=== PATIENT | male | born 1985 | race African-American/Black ===

== ENCOUNTER 2016-10-08 08:40 | Emergency (ER) | payer OTHER ==
[~2016-10-08] VITALS: Ht 172.7 cm; Wt 125.5 kg
[~2016-10-08 08:40] MED LIST: ACET1TAB40 PO; AMOX1TAB67 PO; AMOX250S38 PO; CLON-429 PO; DOCU-144 PO; IBUP800T25 PO; METF500T4 PO; PRAM28.33 PR; PSL6PK PO; ZOLP10TA PO
[2016-10-08 08:52] VITALS: Ht 172.7 cm; Wt 125.5 kg
[2016-10-08] MEDS ORDERED: KETOROLAC 30 MG INJ IM STA (10:12)
--- NOTE | 2016-10-08 10:50 | ERD ---
ER Documentation Chief Complaint Date/Time DATE: 10/08/16 TIME: 10:49 Chief Complaint Complains of left ankle pain since yesterday HPI This is a 31-year-old male presenting to the emergency department for left ankle pain 2 days. Patient had a fall yesterday and states he "twisted" his left ankle. Patient has had previous injuries to this ankle and has intermittent bouts of pain. Patient has pain with weightbearing to left foot. No obvious deformity. Patient states he has swelling to left ankle. Denies numbness or tingling or loss of sensation. No laceration. ROS All systems reviewed and are negative except as per history of present illness. Medications Home Meds Active Scripts Ibuprofen* (Motrin*) 800 Mg Tab, 800 MG PO Q6, #15 TAB Prov:TOY VILLARREAL NP 10/08/16 Metformin* (Glucophage*) 500 Mg Tab, 500 MG PO BID, #60 TAB Prov:MICHAEL GARCIA 04/12/16 Zolpidem Tartrate* (Ambien*) 10 Mg Tablet, 10 MG PO QHS Y for INSOMNIA, #7 TAB Prov:MICHAEL GARCIA 04/12/16 Clonazepam* (Klonopin*) 0.5 Mg Tab, 0.5 MG PO QHS, #7 TAB Prov:MICHAEL GARCIA 04/12/16 Pramoxine Hcl* (Anusol*) 28.3 Gm Oint...g., 1 APPLIC IN BID, #1 TUB Prov:YUNIEL PENA DO 08/18/15 Docusate Sodium* (Colace*) 100 Mg Capsule, 100 MG PO BID, #30 CAP Prov:BECKYYUNIEL DO 08/18/15 Psyllium (Konsyl) 1 Pkt Susp, 1 PKT PO DAILY, #10 PACKET Prov:YUNIEL PENA DO 08/18/15 Ibuprofen* (Motrin*) 800 Mg Tab, 800 MG PO Q6, #15 TAB Prov:TOY VILLARREAL NP 08/08/15 Amoxicillin-Clavulanate K* (Augmentin*) 500 Mg Tab, 500 MG PO BID, #20 TAB Prov:TOY VILLARREAL NP 08/08/15 Acetaminophen-Codeine* (Acetaminophen-Cod #3*) 300-30 Mg Tab, 1 TAB PO Q4H Y for PAIN, #30 TAB Prov:MICHAEL GARCIA 07/31/15 Amox Tr-Potassium Clavulanate* (Augmentin* Susp) 250-62.5MG/5 Ml - 100 Ml Susp.recon, 10 ML PO TID for 7 Days, BOTTLE Prov:MICHAEL GARCIA 07/31/15 Reported Medications Metformin* (Glucophage*) 500 Mg Tab, 500 MG PO DAILY, #60 TAB 06/23/15 Allergies Allergies: Coded Allergies: No Known Allergy (Unverified , 08/18/15) PMhx/Soc History of Surgery: Yes (testicular, adenoids) Anesthesia Reaction: No Hx Neurological Disorder: No Hx Respiratory Disorders: No Hx Cardiac Disorders: No Hx Psychiatric Problems: Yes (DEPRESSION) Hx Miscellaneous Medical Probl: Yes (DM type 2) Hx Alcohol Use: Yes ("NOT VERY MUCH") Hx Substance Use: No Hx Tobacco Use: Yes (10 CIGS/DAY) Smoking Status: Current every day smoker Physical Exam Vitals Vital Signs Date Time Temp Pulse Resp B/P Pulse Ox O2 Delivery O2 Flow Rate FiO2 10/08/16 08:52 98.3 94 20 151/77 96 Physical Exam Const: Alert, [id number] Head: Atraumatic Eyes: Normal Conjunctiva ENT: Normal External Ears, Nose and Mouth. Neck: Full range of motion..~ No meningismus. Resp: Clear to auscultation bilaterally Cardio: Regular rate and rhythm, no murmurs Abd: Soft, non tender, non distended. Normal bowel sounds Skin: No petechiae or rashes Back: No midline or flank tenderness Ext: Mild swelling to malleolus. Pedal pulses 2+ and intact bilaterally 2+. Neur: Awake and alert Psych: Normal Mood and Affect Results 24 hrs Current Medications Medications (Trade) Dose Ordered Sig/Juanito Route PRN Reason Start Time Stop Time Status Last Admin Dose Admin Ketorolac Tromethamine (Toradol) 30 mg ONCE STAT IM 10/08/16 10:12 10/08/16 10:14 DC 10/08/16 10:21 Procedures/MDM ED COURSE: The patient was stable throughout ED course. I kept the patient and/or family informed of laboratory and diagnostic imaging results throughout the ED course. Imaging X-ray left ankle Patient: SHAYAN SAMUEL : 1985 Age: 31 Sex: M MR #: [id number] [facility] #: [id number] DOS: 10/08/16 1012 Ordering MD: TOY VILLARREAL NP Location: [facility] Room/Bed: PROCEDURE: Left ankle series. CLINICAL INDICATION: Left ankle pain TECHNIQUE: Three views of the left ankle were performed. COMPARISON: None. FINDINGS: There is normal mineralization and alignment of the bones of the left ankle. No acute fracture or dislocation is seen. There is an anterior osteophyte arising from the distal tibia which may be causing impingement and contacting the anterior talus. No joint effusion is identified. There is moderate diffuse soft tissue swelling.. IMPRESSION: 1. No evidence of acute fracture or dislocation. 2. Moderate diffuse soft tissue swelling. 3. Anterior osteophyte arising from the distal tibia suggesting anterior tibiotalar impingement. Consider further evaluation with non emergent MRI to evaluate for marrow edema as clinically indicated. MDM: This is a 31 year old male presenting to ER with ankle pain after injury yesterday. Patient states he fell and "twisted" his ankle while walking. Patient given Toradol while in the ED. left ankle x-ray reviewed by radiologist as no evidence of acute fracture or dislocation. Moderate diffuse soft tissue swelling and anterior osteophyte arising from the distal tibia suggesting anterior tibiotalar impingement. Patient's pain has improved. Vital signs are stable. Remains afebrile. Patient remains alert, calm and cooperative. Low suspicion for acute dislocation or fracture. Patient's diagnosis is ankle pain secondary to injury. Patient is appropriate for outpatient management will be given prescription for ibuprofen. Instructed patient to follow-up with primary care provider or orthopedic physician in the next 2-3 days for reassessment. Resources provided. Return to ED for any high fever, chest pain, difficulty breathing, shortness breath, wheezing, vomiting, diarrhea, abdominal pain or any new or worsening symptoms. Patient verbalizes understanding. All questions answered at discharge. Departure Diagnosis: Primary Impression: Ankle pain Laterality: left Chronicity: chronic Qualified Code: M25.572 - Chronic pain of left ankle Condition: Stable TOY VILLARREAL NP October 08, 2016 10:50
--- NOTE | 2016-10-08 11:05 | RADRPT ---
PROCEDURE: Left ankle series. CLINICAL INDICATION: Left ankle pain TECHNIQUE: Three views of the left ankle were performed. COMPARISON: None. FINDINGS: There is normal mineralization and alignment of the bones of the left ankle. No acute fracture or d islocation is seen. There is an anterior osteophyte arising from the distal tibia which may be caus ing impingement and contacting the anterior talus. No joint effusion is identified. There is moderat e diffuse soft tissue swelling.. IMPRESSION: 1. No evidence of acute fracture or dislocation. 2. Moderate diffuse soft tissue swelling. 3. Anterior osteophyte arising from the distal tibia suggesting anterior tibiotalar impingement. C onsider further evaluation with non emergent MRI to evaluate for marrow edema as clinically indicate d. RPTAT: KK .Joel Lubin MD, Date Time Electronically viewed and signed by .Joel Lubin MD, on 10/08/2016 11:05 .B/
[2016-10-08] MEDS ORDERED: IBUP800T25 PO (11:12)
== END 2016-10-08 12:16 | disposition home or self-care (01) ==
LOC: FTE 08:40
DX: M25.572 Pain in left ankle and joints of left foot (principal); E11.9 Type 2 diabetes mellitus without complications; F17.210 Nicotine dependence, cigarettes, uncomplicated; Z79.84 Long term (current) use of oral hypoglycemic drugs
CPT/HCPCS: 73610; 96372; J1885; Z7502

== ENCOUNTER 2017-01-23 08:30 | Emergency (ER) | payer OTHER ==
[~2017-01-23] VITALS: Ht 172.7 cm; Wt 126.0 kg
[2017-01-23 08:33] VITALS: Ht 172.7 cm; Wt 126.0 kg
[2017-01-23] MEDS ORDERED: METF500T4 PO (08:58)
[2017-01-23] MEDS ORDERED: HC.5O30 TOP (08:58)
[2017-01-23] MEDS ORDERED: ZOLP10TA PO (08:58)
--- NOTE | 2017-01-23 09:06 | ERD ---
ER Documentation Chief Complaint Date/Time DATE: 01/23/17 TIME: 09:00 Chief Complaint needs medication refill HPI 31-year-old male with a history of type 2 diabetes, and sleep insomnia, presents to the emergency department for a medication refill of his metformin and Ambien. Patient states he is in the process of trying to find a new primary care provider but is unable to see one in a timely matter. Patient also reports an itchy rash on the dorsum of his right wrist since yesterday. He notes that he is staying in a retirement and noticed small bugs biting his skin near the wrist and since that time has experienced mild itchiness and redness. Patient denies any major swelling, numbness, tingling, fever, chills, dizziness, abdominal pain, change in vision, polydipsia, polyuria. He denies chest pain or shortness of breath. He states he checks his blood sugar regularly and it is normally well controlled. ROS All systems reviewed and are negative except as per history of present illness. Medications Home Meds Active Scripts Zolpidem Tartrate* (Ambien*) 10 Mg Tablet, 10 MG PO QHS Y for INSOMNIA, #30 TAB Prov:TERESA KOCH PA-C 01/23/17 Hydrocortisone* Topical (Hydrocortisone* Topical) 0.5%- 28.35 Gm Oint, 1 APPLIC TOP BID for 7 Days, TUB Prov:TERESA KOCH PA-C 01/23/17 Metformin* (Glucophage*) 500 Mg Tab, 500 MG PO BID, #60 TAB Prov:TERESA KOCH PA-C 01/23/17 Ibuprofen* (Motrin*) 800 Mg Tab, 800 MG PO Q6, #15 TAB Prov:TOY VILLARREAL NP 10/08/16 Metformin* (Glucophage*) 500 Mg Tab, 500 MG PO BID, #60 TAB Prov:RADHA,MICHAEL C 04/12/16 Zolpidem Tartrate* (Ambien*) 10 Mg Tablet, 10 MG PO QHS Y for INSOMNIA, #7 TAB Prov:RADHA,MICHAEL C 04/12/16 Clonazepam* (Klonopin*) 0.5 Mg Tab, 0.5 MG PO QHS, #7 TAB Prov:RADHA,MICHAEL C 04/12/16 Pramoxine Hcl* (Anusol*) 28.3 Gm Oint...g., 1 APPLIC NE BID, #1 TUB Prov:YUNIEL PENA DO 08/18/15 Docusate Sodium* (Colace*) 100 Mg Capsule, 100 MG PO BID, #30 CAP Prov:YUNIEL PENA DO 08/18/15 Psyllium (Konsyl) 1 Pkt Susp, 1 PKT PO DAILY, #10 PACKET Prov:YUNIEL PENA DO 08/18/15 Ibuprofen* (Motrin*) 800 Mg Tab, 800 MG PO Q6, #15 TAB Prov:TOY VILLARREAL [employer] MACHINE OPERATOR 08/08/15 Amoxicillin-Clavulanate K* (Augmentin*) 500 Mg Tab, 500 MG PO BID, #20 TAB Prov:TOY VILLARREAL SK[employer] MACHINE OPERATOR 08/08/15 Acetaminophen-Codeine* (Acetaminophen-Cod #3*) 300-30 Mg Tab, 1 TAB PO Q4H Y for PAIN, #30 TAB Prov:MICHAEL GARCIA 07/31/15 Amox Tr-Potassium Clavulanate* (Augmentin* Susp) 250-62.5MG/5 Ml - 100 Ml Susp.recon, 10 ML PO TID for 7 Days, BOTTLE Prov:MICHAEL GARCIA 07/31/15 Reported Medications Metformin* (Glucophage*) 500 Mg Tab, 500 MG PO DAILY, #60 TAB 06/23/15 Allergies Allergies: Coded Allergies: No Known Allergy (Unverified , 01/23/17) PMhx/Soc History of Surgery: Yes (testicular, adenoids) Anesthesia Reaction: No Hx Neurological Disorder: No Hx Respiratory Disorders: No Hx Cardiac Disorders: No Hx Psychiatric Problems: Yes (DEPRESSION) Hx Miscellaneous Medical Probl: Yes (DM type 2) Hx Alcohol Use: Yes ("NOT VERY MUCH") Hx Substance Use: No Hx Tobacco Use: Yes (10 CIGS/DAY) Smoking Status: Current every day smoker Physical Exam Vitals Vital Signs Date Time Temp Pulse Resp B/P Pulse Ox O2 Delivery O2 Flow Rate FiO2 01/23/17 08:33 97.1 91 18 162/102 95 Physical Exam Const: Well-developed, well-nourished, no acute distress Head: Atraumatic Eyes: Normal Conjunctiva ENT: Normal External Ears, Nose and Mouth. Neck: Full range of motion..~ No meningismus. Resp: Clear to auscultation bilaterally Cardio: Regular rate and rhythm, no murmurs Abd: Soft, non tender, non distended. Normal bowel sounds Skin: Mildly erythematous silver plaque like lesions in clusters along the dorsum of the right wrist. No swelling. No increased warmth. Patient has full range of motion of wrist and hand. Distal sensation intact for the right hand. Tissue warm and well perfused. Back: No midline or flank tenderness Ext: No cyanosis, or edema Neur: Awake and alert Psych: Normal Mood and Affect Procedures/MDM This is a 31-year-old male with a history of type 2 diabetes here for a medication refill as well as for a new onset rash to the dorsum of his right wrist. Patient denies any recent illness, fever, chills, abdominal pain, blurred vision, dizziness, chest pain, shortness of breath, or other complaints. Physical exam with evidence of an eczematous type rash to the right wrist region. There is no major swelling, or signs of infection. Patient well-appearing, nontoxic, and pleasant throughout exam. Vital signs reviewed. Patient afebrile, non-tachycardic, non-hypoxic upon arrival. Patient 's blood pressure was elevated (>120/80) but appears stable without evidence of hypertension emergency or urgency. The patient was counseled about the risks of hypertension and urged to pursue outpatient monitoring and therapy within a week with their primary care physician. Patient provided with a refill for Ambien, 10 mg, daily as well as Metformin, 500 mg twice daily. I will also be prescribing him topical hydrocortisone cream to control his rash symptoms. He was provided with a list of resources so that he may follow-up with his primary care physician to better control his chronic disease. Based on patient's history of present illness and physical examination the decision was made to discharge. The patient was re-evaluated after ED treatment and stabilizing measures, and symptoms have improved. There is no evidence of life threatening injuries or illnesses at this time. On re-examination, patient resting in no distress, stable vital signs, reports feeling better and safe for discharge with outpatient follow up with PMD in 1-2 days. Patient given return precautions. Departure Diagnosis: Primary Impression: Rash Additional Impression: Medication refill Condition: Good Patient Instructions: Self-Care for Skin Rashes Additional Instructions: Call your primary care doctor TOMORROW for an appointment during the next 1-2 days.See the doctor sooner or return here if your condition worsens before your appointment time. TERESA KOCH PA-C Jan 23, 2017 09:05
== END 2017-01-23 09:26 | disposition home or self-care (01) ==
LOC: FTE 08:30
DX: R21 Rash and other nonspecific skin eruption (principal); E11.9 Type 2 diabetes mellitus without complications; F17.210 Nicotine dependence, cigarettes, uncomplicated; Z76.0 Encounter for issue of repeat prescription; Z79.84 Long term (current) use of oral hypoglycemic drugs
CPT/HCPCS: 99283

== ENCOUNTER 2017-02-25 21:16 | Emergency (ER) | payer OTHER ==
[~2017-02-25] VITALS: Ht 177.8 cm; Wt 121.5 kg
[~2017-02-25 21:16] MED LIST changes: +HC.5O30 TOP
[2017-02-25 21:20] VITALS: Ht 177.8 cm; Wt 121.5 kg
[2017-02-26] MEDS ORDERED: SOD CHLORIDE 0.9% 1,000 ML IV ONE
[2017-02-26 00:30] LABS: BASOPHILS % 0.3 % (0.0-2.0); EOSINOPHILS % 0.3 % (0.0-7.0); HEMATOCRIT 49.2 % (42.0-52.0); HEMOGLOBIN 15.6 g/dl (14.0-18.0); LYMPHOCYTES # 2.5 10^3/ul (0.8-2.9); LYMPHOCYTES % 24.5 % (15.0-51.0); MEAN CORPUSCULAR HEMOGLOBIN 27.5 pg (29.0-33.0); MEAN CORPUSCULAR HGB CONC 31.7 g/dl (32.0-37.0); MEAN CORPUSCULAR VOLUME 86.6 fl (82.0-101.0); MEAN PLATELET VOLUME 11.3 fl (7.4-10.4); MONOCYTE # 0.7 10^3/ul (0.3-0.9); MONOCYTES % 7.1 % (0.0-11.0); NEUTROPHIL # 6.7 10^3/ul (1.6-7.5); NEUTROPHILS % 67.3 % (39.0-77.0); PLATELET COUNT 243 10^3/UL (140-415); RED BLOOD COUNT 5.68 10^6/ul (4.70-6.10); RED CELL DISTRIBUTION WIDTH 12.3 % (11.5-14.5)
[2017-02-26 00:49] LABS: ALANINE AMINOTRANSFERASE 28 IU/L (13-69); ALBUMIN 4.4 g/dl (3.3-4.9); ALBUMIN/GLOBULIN RATIO 1.37; ALKALINE PHOSPHATASE 62 IU/L (42-121); ANION GAP 13 (8-16); ASPARTATE AMINO TRANSFERASE 18 IU/L (15-46); BILIRUBIN,INDIRECT 0.6 mg/dl (0-1.1); BILIRUBIN,TOTAL 0.6 mg/dl (0.2-1.3); BLOOD UREA NITROGEN 19 mg/dl (7-20); CARBON DIOXIDE 28 mmol/L (21-31); CHLORIDE 100 mmol/L (97-110); CREATININE 1.03 mg/dl (0.61-1.24); GLUCOSE 155 mg/dl (70-220); POTASSIUM 4.2 mmol/L (3.5-5.1); SODIUM 137 mmol/L (135-144); TOTAL PROTEIN 7.6 g/dl (6.1-8.1)
[2017-02-26 01:11] LABS: CANNABINOIDS Positive (NEGATIVE)
[2017-02-26 01:33] LABS: BARBITURATES Negative (NEGATIVE); BENZODIAZEPINES Negative (NEGATIVE); COCAINE Negative (NEGATIVE); OPIATES Negative (NEGATIVE)
--- NOTE | 2017-02-26 01:38 | RADRPT ---
PROCEDURE: Renal US. CLINICAL INDICATION: Renal failure. TECHNIQUE: Multiple sonographic images of the kidneys were obtained. COMPARISON: No prior studies are submitted for comparison. FINDINGS: The right kidney measures 10.1 cm. There is preservation of corticomedullary differentiation. No sha dowing renal calculus is identified. There is no evidence of hydronephrosis. The left kidney measures 10 cm. There is preservation of corticomedullary differentiation. No shadow ing renal calculus is identified. There is no evidence of hydronephrosis. The bladder is nondistended and not well visualized. The visualized aorta is within normal limits. The visualized portions of the IVC are within normal l imits. IMPRESSION: No evidence of shadowing renal calculi or hydronephrosis. RPTAT: HIKT .Greg Diamond MD, Date Time Electronically viewed and signed by .Greg Diamond MD, on 02/26/2017 01:37 .T/
[2017-02-26 01:55] LABS: ETHANOL < 10.0 mg/dl
--- NOTE | 2017-02-26 02:15 | RADRPT ---
PROCEDURE: XR Chest. CLINICAL INDICATION: Palpitations. Asthma. TECHNIQUE: Portable single view of the chest COMPARISON: 07/30/2015 FINDINGS: The heart is again noted to be top normal in size. Lung volumes are slightly reduced but no definite acute infiltrate, pleural effusion, or overt congestive heart failure is seen. IMPRESSION: Top normal heart size. No definite acute pulmonary disease. RPTAT: HLBE Lydia Saldana Physician Date Time Electronically viewed and signed by Lydia Saldana, Physician on 02/26/2017 02:15 LE/
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
[2017-02-26 02:26] VITALS: BP 132/77; PULSE 82; RESP 20; TEMP 98
== END 2017-02-26 02:29 | disposition home or self-care (01) ==
LOC: FTE 21:16
DX: T50.901A Poisoning by unspecified drugs, medicaments and biological substances, accidental (unintentional), initial encounter (principal); E11.9 Type 2 diabetes mellitus without complications; F17.210 Nicotine dependence, cigarettes, uncomplicated; R07.9 Chest pain, unspecified; Z79.84 Long term (current) use of oral hypoglycemic drugs
CPT/HCPCS: 36415; 71010; 76775; 80053; 80306; 80307; 83930; 85025; 93005; J7030; Z7502

== ENCOUNTER 2017-04-14 19:55 | Emergency (ER) | payer OTHER ==
[~2017-04-14] VITALS: Ht 172.7 cm; Wt 123.2 kg
[2017-04-14 20:07] VITALS: Ht 172.7 cm; Wt 123.2 kg
[2017-04-14] MEDS ORDERED: KETOROLAC 60 MG INJ IM STA (21:26)
[2017-04-14] MEDS ORDERED: CYCL-319 PO (21:28)
[2017-04-14] MEDS ORDERED: NAPR-260 PO (21:28)
--- NOTE | 2017-04-14 21:32 | ERD ---
ER Documentation Chief Complaint Chief Complaint low back pain while lifting weights x 2 days HPI This is a 31-year-old male presenting to the emergency department complaining of right lumbar back pain status post lifting heavy weights 2 days prior to being seen. Patient states that the pain is moderate in severity and states that it is described as achy. Patient denies taking any medications for this. He states that the pain is worse when he gets up from a chair ROS All systems reviewed and are negative except as per history of present illness. Medications Home Meds Active Scripts Cyclobenzaprine Hcl* (Cyclobenzaprine Hcl*) 10 Mg Tablet, 10 MG PO Q8 Y for MUSCLE SPASMS, #30 TAB Prov:GOGO DALYC 04/14/17 Naproxen* (Naprosyn*) 500 Mg Tablet, 500 MG PO BID Y for PAIN AND/OR INFLAMMATION, #30 TAB Prov:GOGO DALYC 04/14/17 Zolpidem Tartrate* (Ambien*) 10 Mg Tablet, 10 MG PO QHS Y for INSOMNIA, #30 TAB Prov:TERESA KOCHC 01/23/17 Hydrocortisone* Topical (Hydrocortisone* Topical) 0.5%- 28.35 Gm Oint, 1 APPLIC TOP BID for 7 Days, TUB Prov:TERESA KOCHC 01/23/17 Metformin* (Glucophage*) 500 Mg Tab, 500 MG PO BID, #60 TAB Prov:TERESA KOCHC 01/23/17 Ibuprofen* (Motrin*) 800 Mg Tab, 800 MG PO Q6, #15 TAB Prov:TOY VILLARREAL NP 10/08/16 Metformin* (Glucophage*) 500 Mg Tab, 500 MG PO BID, #60 TAB Prov:RADHAMICHAEL C 04/12/16 Zolpidem Tartrate* (Ambien*) 10 Mg Tablet, 10 MG PO QHS Y for INSOMNIA, #7 TAB Prov:RADHAMICHAEL C 04/12/16 Clonazepam* (Klonopin*) 0.5 Mg Tab, 0.5 MG PO QHS, #7 TAB Prov:RADHAMICHAEL C 04/12/16 Pramoxine Hcl* (Anusol*) 28.3 Gm Oint...g., 1 APPLIC SD BID, #1 TUB Prov:YUNIEL PENA DO 08/18/15 Docusate Sodium* (Colace*) 100 Mg Capsule, 100 MG PO BID, #30 CAP Prov:YUNIEL PENA DO 08/18/15 Psyllium (Konsyl) 1 Pkt Susp, 1 PKT PO DAILY, #10 PACKET Prov:YUNIEL PENA DO 08/18/15 Ibuprofen* (Motrin*) 800 Mg Tab, 800 MG PO Q6, #15 TAB Prov:TOY VILLARREAL HAZARD MITIGATION OFFICER 08/08/15 Amoxicillin-Clavulanate K* (Augmentin*) 500 Mg Tab, 500 MG PO BID, #20 TAB Prov:TOY VILLARREAL HAZARD MITIGATION OFFICER 08/08/15 Acetaminophen-Codeine* (Acetaminophen-Cod #3*) 300-30 Mg Tab, 1 TAB PO Q4H Y for PAIN, #30 TAB Prov:MICHAEL GARCIA 07/31/15 Amox Tr-Potassium Clavulanate* (Augmentin* Susp) 250-62.5MG/5 Ml - 100 Ml Susp.recon, 10 ML PO TID for 7 Days, BOTTLE Prov:RAMÍREZ GARCIANA C 07/31/15 Reported Medications Metformin* (Glucophage*) 500 Mg Tab, 500 MG PO DAILY, #60 TAB 06/23/15 Allergies Allergies: Coded Allergies: No Known Allergy (Unverified , 04/14/17) PMhx/Soc History of Surgery: Yes (testicular, adenoids) Anesthesia Reaction: No Hx Neurological Disorder: No Hx Respiratory Disorders: No Hx Cardiac Disorders: No Hx Psychiatric Problems: Yes (DEPRESSION) Hx Miscellaneous Medical Probl: Yes (DM type 2) Hx Alcohol Use: Yes (social) Hx Substance Use: No Hx Tobacco Use: Yes (10 CIGS/DAY) Physical Exam Vitals Vital Signs Date Time Temp Pulse Resp B/P Pulse Ox O2 Delivery O2 Flow Rate FiO2 04/14/17 20:07 98.7 108 20 168/100 96 Physical Exam GENERAL: WD/WN, in no apparent distress, non-toxic appearing HENT: NC/AT EYES: Conjunctiva normal NECK: Supple PULM: Normal labored breathing CV: Good capillary refill GI: Non-distended, no guarding BACK: no deformities noted, normal spinal curvature, patient with a right lumbar region and paraspinal muscles, nontender on spine midline EXT: No clubbing, cyanosis, or edema NEURO: Moves on all fours, sensation intact, normal gait SKIN: intact PSYCH: Normal mood Results 24 hrs Current Medications Medications (Trade) Dose Ordered Sig/Juanito Route PRN Reason Start Time Stop Time Status Last Admin Dose Admin Ketorolac Tromethamine (Toradol) 60 mg ONCE STAT IM 04/14/17 21:26 04/14/17 21:27 DC Procedures/MDM This is a 31-year-old male presenting to the emergency department with a right lumbar strain status post lifting heavy weights 2 days prior to being seen. There was no evidence of cauda equina or vertebral fracture. Patient is neurovascular intact and stable to be discharged home with instructions to follow-up with her primary care physician. In the ED, patient was given Toradol. He was given a prescription for naproxen and Flexeril for home. Discussed return to the ER for any worsening symptoms. He understands and agrees with plan. Departure Diagnosis: Primary Impression: Lumbar strain Condition: Stable Patient Instructions: Relieving Back Pain, Back Pain (Acute Or Chronic) Additional Instructions: FOLLOW UP WITH YOUR PRIMARY CARE PHYSICIAN TOMORROW.Return to this facility if you are not improving as expected. You have been given a medicine which may cause drowsiness.DO NOT DRIVE OR OPERATE DANGEROUS MACHINERY while taking this medicine! Take all medicines as directed. Return to this facility if you are not improving as expected. GOGO DALY PA-C Apr 14, 2017 21:32
== END 2017-04-14 22:13 | disposition home or self-care (01) ==
LOC: FTE 19:55
DX: S39.012A Strain of muscle, fascia and tendon of lower back, initial encounter (principal); E11.9 Type 2 diabetes mellitus without complications; F17.210 Nicotine dependence, cigarettes, uncomplicated; X50.0XXA Overexertion from strenuous movement or load, initial encounter; Y92.9 Unspecified place or not applicable; Z79.84 Long term (current) use of oral hypoglycemic drugs
CPT/HCPCS: 96372; J1885; Z7502

== ENCOUNTER 2017-05-17 20:20 | Emergency (ER) | payer OTHER ==
[~2017-05-17] VITALS: Ht 182.9 cm; Wt 122.5 kg
[~2017-05-17 20:20] MED LIST changes: +CYCL-319 PO; +NAPR-260 PO
[2017-05-17 20:24] VITALS: Ht 182.9 cm; Wt 122.5 kg
[2017-05-17] MEDS ORDERED: METF500T4 PO (21:23)
--- NOTE | 2017-05-18 04:12 | ERD ---
ER Documentation Chief Complaint Chief Complaint mewdication refill- metformin HPI This is a 32 y/o old male that presents to the ER for medication refill. Patient is requesting metformin. Patient stated that he takes 500 mg p.o. twice daily every day. He has not had a chance to go to the doctor, since he just got a new primary care doctor and has not been able to get an appointment. Patient denies any chest pain, patient, shortness of breath, shakiness, vision changes, nausea, vomiting. He denies any fevers or chills. He states that he has been taking his metformin lately and that his diabetes is finally getting under control. ROS 12 point review of systems was done, all negative except per HPI. Medications Home Meds Active Scripts Metformin* (Glucophage*) 500 Mg Tab, 500 MG PO BID for 60 Days, #120 TAB Prov:MICHAEL GARCIA 05/17/17 Cyclobenzaprine Hcl* (Cyclobenzaprine Hcl*) 10 Mg Tablet, 10 MG PO Q8 Y for MUSCLE SPASMS, #30 TAB Prov:GOGO DALY PA-C 04/14/17 Naproxen* (Naprosyn*) 500 Mg Tablet, 500 MG PO BID Y for PAIN AND/OR INFLAMMATION, #30 TAB Prov:GOGO DALY PA-C 04/14/17 Zolpidem Tartrate* (Ambien*) 10 Mg Tablet, 10 MG PO QHS Y for INSOMNIA, #30 TAB Prov:TERESA KOCH PA-C 01/23/17 Hydrocortisone* Topical (Hydrocortisone* Topical) 0.5%- 28.35 Gm Oint, 1 APPLIC TOP BID for 7 Days, TUB Prov:TERESA KOCH PA-C 01/23/17 Metformin* (Glucophage*) 500 Mg Tab, 500 MG PO BID, #60 TAB Prov:TERESA KOCH PA-C 01/23/17 Ibuprofen* (Motrin*) 800 Mg Tab, 800 MG PO Q6, #15 TAB Prov:TOY VILLARREAL NP 10/08/16 Metformin* (Glucophage*) 500 Mg Tab, 500 MG PO BID, #60 TAB Prov:MICHAEL GARCIA 04/12/16 Zolpidem Tartrate* (Ambien*) 10 Mg Tablet, 10 MG PO QHS Y for INSOMNIA, #7 TAB Prov:MICHAEL GARICA Chemo 04/12/16 Clonazepam* (Klonopin*) 0.5 Mg Tab, 0.5 MG PO QHS, #7 TAB Prov:MICHAEL GARCIA Chemo 04/12/16 Pramoxine Hcl* (Anusol*) 28.3 Gm Oint...g., 1 APPLIC ND BID, #1 TUB Prov:YUNIEL PENA DO 08/18/15 Docusate Sodium* (Colace*) 100 Mg Capsule, 100 MG PO BID, #30 CAP Prov:YUNIEL PENA 08/18/15 Psyllium (Konsyl) 1 Pkt Susp, 1 PKT PO DAILY, #10 PACKET Prov:YUNIEL PENA 08/18/15 Ibuprofen* (Motrin*) 800 Mg Tab, 800 MG PO Q6, #15 TAB Prov:TOY VILLARREAL MILK INSPECTOR 08/08/15 Amoxicillin-Clavulanate K* (Augmentin*) 500 Mg Tab, 500 MG PO BID, #20 TAB Prov:TOY VILLARREAL MILK INSPECTOR 08/08/15 Acetaminophen-Codeine* (Acetaminophen-Cod #3*) 300-30 Mg Tab, 1 TAB PO Q4H Y for PAIN, #30 TAB Prov:RADHAMICHAEL Mclain 07/31/15 Amox Tr-Potassium Clavulanate* (Augmentin* Susp) 250-62.5MG/5 Ml - 100 Ml Susp.recon, 10 ML PO TID for 7 Days, BOTTLE Prov:MICHAEL GARCIA Chemo 07/31/15 Reported Medications Metformin* (Glucophage*) 500 Mg Tab, 500 MG PO DAILY, #60 TAB 06/23/15 Allergies Allergies: Coded Allergies: No Known Allergy (Unverified , 04/14/17) PMhx/Soc History of Surgery: Yes (testicular, adenoids) Anesthesia Reaction: No Hx Neurological Disorder: No Hx Respiratory Disorders: No Hx Cardiac Disorders: No Hx Psychiatric Problems: Yes (DEPRESSION) Hx Miscellaneous Medical Probl: Yes (DM type 2) Hx Alcohol Use: Yes (social) Hx Substance Use: No Hx Tobacco Use: Yes (10 CIGS/DAY) Smoking Status: Current every day smoker Physical Exam Vitals Vital Signs Date Time Temp Pulse Resp B/P Pulse Ox O2 Delivery O2 Flow Rate FiO2 05/17/17 20:24 97.3 115 20 137/92 98 Physical Exam GENERAL: The patient is well developed and appropriate for usual state of health , in no apparent distress. HEENT: Atraumatic. CHEST: Clear to auscultation bilaterally. There are no rales, wheezes or rhonchi. HEART: Regular rate and rhythm. No murmurs, clicks, rubs or gallops. ABDOMEN: Soft, nontender and nondistended. NEURO: Alert and oriented. Procedures/MDM This is a 32-year-old male that presents to the ER for medication refill, he is asymptomatic otherwise. Patient's blood pressure was slightly elevated to 137/ 92, however he does have hypertension. He does not have any hypertensive emergency or urgency at this time. Patient did take his Klonopin this morning. Patient was slightly tachycardic however is completely asymptomatic with no chest pain, palpitations, shortness of breath, leg pain, leg redness or leg swelling. Patient is not hypoxic or in any respiratory distress. He will be given his refill for medication was advised to follow-up with his primary care doctor regarding his diabetes and high blood pressure as soon as possible. My medical decision making shared with the patient he understands and agrees with plan. Departure Diagnosis: Primary Impression: Encounter for medication refill Condition: Stable Patient Instructions: Taking Medicine Safely Referrals: [facility] (PCP) Additional Instructions: Call your primary care doctor TOMORROW for an appointment during the next 1-2 days.See the doctor sooner or return here if your condition worsens before your appointment time. MICHAEL GARCIA May 18, 2017 04:12
== END 2017-05-17 21:43 | disposition home or self-care (01) ==
LOC: FTE 20:20
DX: Z76.0 Encounter for issue of repeat prescription (principal); E11.9 Type 2 diabetes mellitus without complications; F17.210 Nicotine dependence, cigarettes, uncomplicated
CPT/HCPCS: 99281

== ENCOUNTER 2017-07-24 07:36 | Emergency (ER) | END 2017-07-24 08:32 | disposition home or self-care (01) ==

== ENCOUNTER 2017-08-12 20:53 | Emergency (ER) | END 2017-08-12 21:30 | disposition home or self-care (01) ==

== ENCOUNTER 2017-11-28 00:31 | Emergency (ER) | END 2017-11-28 04:04 | disposition home or self-care (01) ==

== ENCOUNTER 2017-12-02 15:22 | Emergency (ER) | END 2017-12-02 17:35 | disposition home or self-care (01) ==

== ENCOUNTER 2018-01-19 02:30 | Emergency (ER) | END 2018-01-19 03:38 | disposition home or self-care (01) ==

== ENCOUNTER 2018-03-13 05:33 | Emergency (ER) | END 2018-03-13 06:30 | disposition home or self-care (01) ==

== ENCOUNTER 2018-08-15 08:56 | Emergency (ER) | payer OTHER ==
[~2018-08-15] VITALS: Wt 126.0 kg
[~2018-08-15 08:56] MED LIST changes: +AMOX1TAB10 PO; +CEPH-443 PO; -CYCL-319 PO; +CYCL10TA7 PO; +D-ME473S2 PO; +FLUT9.9S NASAL; +IBUP-1542 PO; -IBUP800T25 PO; +IBUP800T48 PO; +METF-849 PO; -METF500T4 PO; +METF850T13 PO; -NAPR-260 PO; +NAPR-985 PO; +PSEU30TA38 PO; +SULF1TAB31 PO
[2018-08-15 09:00] VITALS: BP 136/74; PULSE 105; RESP 18
--- NOTE | 2018-08-15 10:15 | ERD ---
ER Documentation Chief Complaint Chief Complaint R EYE PAIN AND SWELLING X 3 DAYS HPI 33-year-old male presents for evaluation of right eye lower lid swelling, for the last 3 days. He denies significant pain. No fever, no visual changes. ROS All systems reviewed and are negative except as per history of present illness. Medications Home Meds Active Scripts Erythromycin Base (Erythromycin) 1 Gm Oint...g., 1 APPLIC RIGHT EYE BID for 7 Days Prov:MARNI JAUREGUI MD 08/15/18 Fluticasone Propionate (Flonase Allergy Relief) 9.9 Ml [place].susp, 1 SPRAY NASAL BID, #1 BOTTLE TO EACH NOSTRIL Prov:MATTEO FLORES PA-C 03/13/18 Pseudoephedrine Hcl* (Pseudoephedrine Hcl*) 30 Mg Tablet, 30 MG PO Q6 PRN for CONGESTION, #30 TAB Prov:MATTEO FLORES PA-C 03/13/18 Dextromethorphan Hb-Promethazine Hcl* (Promethazine DM* Syrup) 473 Ml Syrup, 5 ML PO Q6 PRN for COUGH, #100 ML Prov:MATTEO FLORES PA-C 03/13/18 Ibuprofen* (Motrin*) 600 Mg Tab, 600 MG PO Q6H PRN for PAIN AND OR ELEVATED TEMP, #30 TAB Prov:ROCÍO HEWITT NP 01/19/18 Amoxicillin/Potassium Clav (Amox-Clav 875-125 mg Tablet) 875-125 mg Tab, 1 TAB PO BID for 7 Days, #14 TAB Prov:ROCÍO HEWITT NP 01/19/18 Cephalexin* (Keflex*) 500 Mg Capsule, 500 MG PO QID for 7 Days, CAP Prov:RUSSELL MOSELEY PA-C 12/02/17 Sulfamethoxazole/Trimethoprim* (Bactrim Ds* Tablet) 1 Each Tablet, 1 TAB PO BID for 7 Days, #14 TAB Prov:RUSSELL MOSELEY PA-C 12/02/17 Zolpidem Tartrate* (Ambien*) 10 Mg Tablet, 10 MG PO QHS PRN for INSOMNIA, #5 TAB Prov:SERVANDO WHITLOCK NP 11/28/17 Metformin Hcl* (Metformin Hcl*) 850 Mg Tablet, 850 MG PO BID, #30 TAB Prov:SERVANDO WHITLOCKStef BRICK MASON 08/12/17 Metformin* (Glucophage*) 500 Mg Tab, 500 MG PO BID for 60 Days, #120 TAB Prov:MICHAEL GARCIA 05/17/17 Cyclobenzaprine Hcl* (Cyclobenzaprine Hcl*) 10 Mg Tablet, 10 MG PO Q8 PRN for MUSCLE SPASMS, #30 TAB Prov:GOGO DALY-C 04/14/17 Naproxen* (Naprosyn*) 500 Mg Tablet, 500 MG PO BID PRN for PAIN AND/OR INFLAMMATION, #30 TAB Prov:GOGO DALY-C 04/14/17 Zolpidem Tartrate* (Ambien*) 10 Mg Tablet, 10 MG PO QHS PRN for INSOMNIA, #30 TAB Prov:TERESA KOCH-C 01/23/17 Hydrocortisone* Topical (Hydrocortisone* Topical) 0.5%- 28.35 Gm Oint, 1 APPLIC TOP BID for 7 Days, TUB Prov:TERESA KOCHC 01/23/17 Metformin* (Glucophage*) 500 Mg Tab, 500 MG PO BID, #60 TAB Prov:TERESA KOCH- 01/23/17 Ibuprofen* (Motrin*) 800 Mg Tab, 800 MG PO Q6, #15 TAB Prov:TOY VILLARREAL BRICK MASON 10/08/16 Metformin* (Glucophage*) 500 Mg Tab, 500 MG PO BID, #60 TAB Prov:MICHAEL GARCIA 04/12/16 Zolpidem Tartrate* (Ambien*) 10 Mg Tablet, 10 MG PO QHS PRN for INSOMNIA, #7 TAB Prov:MICHAEL GARCIA 04/12/16 Clonazepam* (Klonopin*) 0.5 Mg Tab, 0.5 MG PO QHS, #7 TAB Prov:MICHAEL GARCIA 04/12/16 Pramoxine Hcl* (Anusol*) 28.3 Gm Oint...g., 1 APPLIC [place] BID, #1 TUB Prov:YUNIEL PENA DO 08/18/15 Docusate Sodium* (Colace*) 100 Mg Capsule, 100 MG PO BID, #30 CAP Prov:YUNIEL PENA DO 08/18/15 Psyllium (Konsyl) 1 Pkt Susp, 1 PKT PO DAILY, #10 PACKET Prov:YUNIEL PENA DO 08/18/15 Ibuprofen* (Motrin*) 800 Mg Tab, 800 MG PO Q6, #15 TAB Prov:TOY VILLARREALStef BRICK MASON 08/08/15 Amoxicillin-Clavulanate K* (Augmentin*) 500 Mg Tab, 500 MG PO BID, #20 TAB Prov:TOY VILLARREALStef BRICK MASON 08/08/15 Acetaminophen-Codeine* (Acetaminophen-Cod #3*) 300-30 Mg Tab, 1 TAB PO Q4H PRN for PAIN, #30 TAB Prov:MICHAEL GARCIA Chemo 07/31/15 Amox Tr-Potassium Clavulanate* (Augmentin* Susp) 250-62.5MG/5 Ml - 100 Ml Susp.recon, 10 ML PO TID for 7 Days, BOTTLE Prov:MICHAEL GARCIA Chemo 07/31/15 Reported Medications Metformin* (Glucophage*) 500 Mg Tab, 500 MG PO DAILY, #60 TAB 06/23/15 Allergies Allergies: Coded Allergies: No Known Allergy (Unverified , 04/14/17) PMhx/Soc History of Surgery: Yes (hernia, adenoids ) Anesthesia Reaction: No Hx Neurological Disorder: No Hx Respiratory Disorders: No Hx Cardiac Disorders: No Hx Psychiatric Problems: No Hx Miscellaneous Medical Probl: Yes (hx diabetes) Hx Alcohol Use: No Hx Substance Use: No Hx Tobacco Use: Yes (10 CIGS/DAY) Physical Exam Vitals Vital Signs Date Temp Pulse Resp B/P (MAP) Pulse Ox O2 O2 Flow FiO2 Time Delivery Rate 08/15/18 98.1 105 18 136/74 99 09:00 (94) Physical Exam Const: No acute distress Head: Atraumatic Eyes: Pupils equal round reactive to light, normal conjunctiva, extraocular motion intact, there is a small amount of lower lid swelling, with no fluctuance, no drainage ENT: Normal External Ears, Nose and Mouth. Neck: Full range of motion. No meningismus. Resp: Normal respiratory effort Skin: No petechiae or rashes Ext: No cyanosis, or edema Neur: Awake and alert Psych: Normal Mood and Affect Procedures/MDM 33-year-old well-appearing nontoxic male presents for eye complaint, most consistent with likely blepharitis. No evidence of significant complication, recommended erythromycin ointment, and warm compresses. Patient otherwise stable for discharge home, at discharge she was in no acute distress. Departure Diagnosis: Primary Impression: Blepharitis Blepharitis type: unspecified type Laterality: unspecified laterality Qualified Codes: H01.009 - Unspecified blepharitis unspecified eye, unspecified eyelid Condition: Stable MARNI JAUREGUI MD Aug 15, 2018 10:15
[2018-08-15] MEDS ORDERED: ERYT1OIN6 RIGHT EYE (10:17)
== END 2018-08-15 10:30 | disposition home or self-care (01) ==
LOC: E/R 08:56
DX: H01.002 Unspecified blepharitis right lower eyelid (principal); E11.9 Type 2 diabetes mellitus without complications; F17.210 Nicotine dependence, cigarettes, uncomplicated; Z79.84 Long term (current) use of oral hypoglycemic drugs
CPT/HCPCS: 99283

== ENCOUNTER 2018-09-04 08:26 | Emergency (ER) | payer OTHER ==
[~2018-09-04] VITALS: Ht 157.5 cm; Wt 117.1 kg
[~2018-09-04 08:26] MED LIST changes: +ERYT1OIN6 RIGHT EYE
[2018-09-04 08:29] VITALS: BP 154/81; PULSE 105; RESP 20; Ht 157.5 cm; Wt 117.1 kg
[2018-09-04] MEDS ORDERED: KETOROLAC 60 MG INJ IM STA (08:41)
[2018-09-04] MEDS ORDERED: IBUP-1542 PO (10:06)
--- NOTE | 2018-09-04 10:21 | ERD ---
ER Documentation Chief Complaint Chief Complaint Complains of bilateral ankle pain x 3 days HPI 33-year-old male patient with a past history of diabetes, resents to the ED complaining of bilateral ankle pain that started about 3 days ago. Patient states that it is worsened in the left ankle and has now left foot pain. States that he currently has a follow-up with his primary care physician and is trying to get orthopedic care however is still waiting for authorization. States that this is been going on for a while, last time patient was here was about 2 years ago. States that the pain has worsened. Denies any loss of sensation, loss of range of motion, fever, chills, increased redness or swelling, chest pain, shortness of breath. ROS All systems reviewed and are negative except as per history of present illness. Medications Home Meds Active Scripts Ibuprofen* (Motrin*) 600 Mg Tab, 600 MG PO Q6, #30 TAB Prov:EUGENIA KAHN PA-C 09/04/18 Erythromycin Base (Erythromycin) 1 Gm Oint...g., 1 APPLIC RIGHT EYE BID for 7 Days Prov:MARNI JAUREGUI MD 08/15/18 Fluticasone Propionate (Flonase Allergy Relief) 9.9 Ml [place].susp, 1 SPRAY NASAL BID, #1 BOTTLE TO EACH NOSTRIL Prov:MATTEO FLORES PA-C 03/13/18 Pseudoephedrine Hcl* (Pseudoephedrine Hcl*) 30 Mg Tablet, 30 MG PO Q6 PRN for CONGESTION, #30 TAB Prov:MATTEO FLORES PA-C 03/13/18 Dextromethorphan Hb-Promethazine Hcl* (Promethazine DM* Syrup) 473 Ml Syrup, 5 ML PO Q6 PRN for COUGH, #100 ML Prov:MATTEO FLORES PA-C 03/13/18 Ibuprofen* (Motrin*) 600 Mg Tab, 600 MG PO Q6H PRN for PAIN AND OR ELEVATED TEMP, #30 TAB Prov:ROCÍO HEWITT NP 01/19/18 Amoxicillin/Potassium Clav (Amox-Clav 875-125 mg Tablet) 875-125 mg Tab, 1 TAB PO BID for 7 Days, #14 TAB Prov:ROCÍO HEWITT NP 8/12/18 Cephalexin* (Keflex*) 500 Mg Capsule, 500 MG PO QID for 7 Days, CAP Prov:RUSSELL MOSELEYC 12/02/17 Sulfamethoxazole/Trimethoprim* (Bactrim Ds* Tablet) 1 Each Tablet, 1 TAB PO BID for 7 Days, #14 TAB Prov:RUSSELL MOSELEYC 12/02/17 Zolpidem Tartrate* (Ambien*) 10 Mg Tablet, 10 MG PO QHS PRN for INSOMNIA, #5 TAB Prov:SERVANDO WHITLOCK BODY FITTER 11/28/17 Metformin Hcl* (Metformin Hcl*) 850 Mg Tablet, 850 MG PO BID, #30 TAB Prov:SERVANDO WHITLOCK BODY FITTER 08/12/17 Metformin* (Glucophage*) 500 Mg Tab, 500 MG PO BID for 60 Days, #120 TAB Prov:MICHAEL GARCIA 05/17/17 Cyclobenzaprine Hcl* (Cyclobenzaprine Hcl*) 10 Mg Tablet, 10 MG PO Q8 PRN for MUSCLE SPASMS, #30 TAB Prov:GOGO DALYC 04/14/17 Naproxen* (Naprosyn*) 500 Mg Tablet, 500 MG PO BID PRN for PAIN AND/OR INFLAMMATION, #30 TAB Prov:GOGO DALYC 04/14/17 Zolpidem Tartrate* (Ambien*) 10 Mg Tablet, 10 MG PO QHS PRN for INSOMNIA, #30 TAB Prov:TERESA KOCH PA-C 01/23/17 Hydrocortisone* Topical (Hydrocortisone* Topical) 0.5%- 28.35 Gm Oint, 1 APPLIC TOP BID for 7 Days, TUB Prov:TERESA KOCH PA-C 01/23/17 Metformin* (Glucophage*) 500 Mg Tab, 500 MG PO BID, #60 TAB Prov:TERESA KOCHC 01/23/17 Ibuprofen* (Motrin*) 800 Mg Tab, 800 MG PO Q6, #15 TAB Prov:TOY VILLARREAL NP 10/08/16 Metformin* (Glucophage*) 500 Mg Tab, 500 MG PO BID, #60 TAB Prov:MICHAEL GARCIA 04/12/16 Zolpidem Tartrate* (Ambien*) 10 Mg Tablet, 10 MG PO QHS PRN for INSOMNIA, #7 TAB Prov:MICHAEL GARCIA Chemo 04/12/16 Clonazepam* (Klonopin*) 0.5 Mg Tab, 0.5 MG PO QHS, #7 TAB Prov:MICHAEL GARCIA Chemo 04/12/16 Pramoxine Hcl* (Anusol*) 28.3 Gm Oint...g., 1 APPLIC PA BID, #1 TUB Prov:YUNIEL PENA DO 08/18/15 Docusate Sodium* (Colace*) 100 Mg Capsule, 100 MG PO BID, #30 CAP Prov:BECKY,[facility] 08/18/15 Psyllium (Konsyl) 1 Pkt Susp, 1 PKT PO DAILY, #10 PACKET Prov:YUNIEL PENA 08/18/15 Ibuprofen* (Motrin*) 800 Mg Tab, 800 MG PO Q6, #15 TAB Prov:TOY VILLARREAL BODY FITTER 08/08/15 Amoxicillin-Clavulanate K* (Augmentin*) 500 Mg Tab, 500 MG PO BID, #20 TAB Prov:TOY VILLARREAL BODY FITTER 08/08/15 Acetaminophen-Codeine* (Acetaminophen-Cod #3*) 300-30 Mg Tab, 1 TAB PO Q4H PRN for PAIN, #30 TAB Prov:MICHAEL GARCIA Chemo 07/31/15 Amox Tr-Potassium Clavulanate* (Augmentin* Susp) 250-62.5MG/5 Ml - 100 Ml Susp.recon, 10 ML PO TID for 7 Days, BOTTLE Prov:MICHAEL GARCIA Chemo 07/31/15 Reported Medications Metformin* (Glucophage*) 500 Mg Tab, 500 MG PO DAILY, #60 TAB 06/23/15 Allergies Allergies: Coded Allergies: No Known Allergy (Unverified , 04/14/17) PMhx/Soc History of Surgery: Yes (hernia, adenoids ) Anesthesia Reaction: No Hx Neurological Disorder: No Hx Respiratory Disorders: No Hx Cardiac Disorders: No Hx Psychiatric Problems: No Hx Miscellaneous Medical Probl: Yes (hx diabetes) Hx Alcohol Use: No Hx Substance Use: No Hx Tobacco Use: Yes (10 CIGS/DAY) Smoking Status: Never smoker FmHx Family History: No diabetes, No coronary disease Physical Exam Vitals Vital Signs Date Temp Pulse Resp B/P (MAP) Pulse Ox O2 O2 Flow FiO2 Time Delivery Rate 09/04/18 98.3 105 20 154/81 96 08:29 (105) Physical Exam Const: Xev-syi-pedpofrff, well-nourished. In no acute distress. Head: Atraumatic, normocephalic Eyes: Normal Conjunctiva without injection ENT: Normal external ear, nose and mouth. Neck: Full range of motion. No meningismus. Resp: Clear to auscultation bilaterally. No wheezing, rhonchi, rales, or crackles. No accessory muscle use. No retractions. Cardio: Regular rate and rhythm, no murmurs Skin: No petechiae or rashes Back: No midline tenderness. No CVA tenderness. Ext: No cyanosis, or edema. Cap refill less than 2 seconds. Distal pulses intact bilaterally. Tenderness palpation of the inferior portion of the medial malleolus. Slight edema noted over the aspect of patient's left ankle. No erythema. Full range of motion with plantarflexion, dorsiflexion. Neur: Awake and alert. Normal gait and coordination. Muscle strength 5/5. Sensation intact bilaterally. Psych: Normal Mood and Affect Results 24 hrs Current Medications Medications Dose Sig/Juanito Start Time Status Last (Trade) Ordered Route PRN Stop Time Admin Dose Reason Admin Ketorolac 60 mg ONCE STAT 09/04/18 DC 09/04/18 Tromethamine IM 08:41 08:52 (Toradol) 09/04/18 08:44 Procedures/MDM 33-year-old male patient with a past medical history of diabetes that started 3 days ago. Patient is afebrile and nontoxic-appearing. Patient given Toradol 10 mg IM with improvement of his pain. IMPRESSION: Mild generalized soft tissue swelling although less pronounced than previously. No new acute fracture or dislocation is seen. There is again mild anterior distal tibial spurring at the tibiotalar joint. Note, nondisplaced fractures may initially be inapparent and short-term followup could be considered if concern or symptoms persist. IMPRESSION: No acute osseous abnormality is identified. Patient is placed in an wrap. Patient denied wanting crutches. Patient was able to ambulate without any difficulty. Splint Assessment: Neurovascularly intact pre and post splint placement with good fit. Patient's extremity symptoms have stabilized while they have been evaluated in the department and are appropriate for outpatient follow up. No evidence of fractures, dislocations, compartment syndrome, neurologic injury, vascular injury, open joint, open fracture, tendon laceration, septic arthritis, osteomyelitis, DVT, foreign body, or other emergent conditions. Diagnosis: Ankle pain Discharge medications: Ibuprofen Follow up with primary care physician in 1-2 days follow-up with prior authorization to see an orthopedic physician for further evaluation and treatment and probable MRI recommended from previous x-ray. Instructed patient to return to the ED sooner for any worsening symptoms. Patient's questions were answered. Patient is hemodynamically stable. Patient understood and agreed with discharge plan. Patient discharged stable. Disclaimer: Inadvertent spelling and grammatical errors are likely due to EHR/dictation software use and do not reflect on the overall quality of patient care. Also, please note that the electronic time recorded on this note does not necessarily reflect the actual time of the patient encounter. Departure Diagnosis: Primary Impression: Ankle pain Chronicity: acute Laterality: left Qualified Codes: M25.572 - Pain in left ankle and joints of left foot Condition: Stable Patient Instructions: What Are Ankle Sprains?, Treating Ankle Sprains Referrals: [facility] Usted se page hecho un examen mdico de control que le indica que no est en ramón condicin que requiera tratamiento urgente en el Departamento de Emergencia. Un estudio ms profundo y el tratamiento de hays condicin pueden esperar sin ningn riesgo hasta que usted sea atendida/o en el consultorio de hays mdico o ramón clnica. Es responsabilidad suya arreglar ramón sabiha para el seguimiento del ruthann. MANEJO DE CONDICIONES NO URGENTES EN EL FUTURO 1) Si usted tiene un mdico de atencin primaria: Usted debera llamar a hays mdico de atencin primaria antes de venir al departamento de emergencia. Despus de las horas de consultorio, hays doctor o hays asociado/a est disponible por telfono. El mdico o enfermero de irene en el servicio telefnico puede asesorarle por paris medio para atender el problema, o ruthann contrario se puede programar ramón sabiha. 2) Si usted no tiene un mdico de atencin primaria: Llame al mdico o clnica de referencia que aparece abajo dayna las horas de consultorio para hacer ramón sabiha para que le vean. CLINICAS: [facility] [phone] [facility] [phone] [facility] [phone] [place] [id number] [phone] [place] [id number] [phone] [facility]. [phone] [address] [facility]. [facility] () Usted se page hecho un examen mdico de control que le indica que no est en ramón condicin que requiera tratamiento urgente en el Departamento de Emergencia. Un estudio ms profundo y el tratamiento de hasy condicin pueden esperar sin ningn riesgo hasta que usted sea atendida/o en el consultorio de hays mdico o ramón clnica. Es responsabilidad suya arreglar ramón sabiha para el seguimiento del ruthann. MANEJO DE CONDICIONES NO URGENTES EN EL FUTURO 1) Si usted tiene un mdico de atencin primaria: Usted debera llamar a hays mdico de atencin primaria antes de venir al departamento de emergencia. Despus de las horas de consultorio, hays doctor o hays asociado/a est disponible por telfono. El mdico o enfermero de irene en el servicio telefnico puede asesorarle por paris medio para atender el problema, o ruthann contrario se puede programar ramón sabiha. 2) Si usted no tiene un mdico de atencin primaria: Llame al mdico o condado institucions de referencia que aparece abajo dayna las horas de consultorio para hacer ramón sabiha para que le vean. SI USTED NO PUEDE PAGAR PARA MARICEL UN MEDICO puede ir a: [facility] [address] [place] [address] [facility] [address] [place] [address] [facility] [address] [place] [address] [facility] [address] [place] [address] [facility] Urgent Care 7 a.m.- 11 p.m. Every Day of the Week NO APPOINTMENT OR AUTHORIZATION NEEDED [facility] Hours: Mon-Fri 9:00 AM - 5:00 PM Additional Instructions: Call your primary care doctor TOMORROW for an appointment during the next 2-3 days for a referral to see an orthopedic physician for further evaluation and treatment.See the doctor sooner or return here if your condition worsens before your appointment time. EUGENIA KAHN PA-C Sep 04, 2018 10:21
== END 2018-09-04 10:56 | disposition home or self-care (01) ==
LOC: FTE 08:26
DX: M25.572 Pain in left ankle and joints of left foot (principal); E11.9 Type 2 diabetes mellitus without complications; Z79.84 Long term (current) use of oral hypoglycemic drugs
CPT/HCPCS: 73610; 73630; 96372; J1885; Z7502